=== PATIENT | male | born 1960 ===

== ENCOUNTER 2017-03-13 15:42 | Inpatient (IN) | payer MEDICAID, OTHER ==
[2017-03-13 15:53] VITALS: O2SAT 95
--- NOTE | 2017-03-13 15:54 | ED PDOC ---
Arrival/HPI - General Time Seen by Provider: 03/13/17 15:47 Historian: Patient - History of Present Illness Narrative History of Present Illness (Text): 03/13/17 15:51 56 y.o. male whose includes Hypertension and schizoaffective d/o who is being transferred from [facility] for psych admission. The patient was seen at [facility] and expressed that he was hearing voices telling him to kill himself. He was medically cleared. He needs to be admitted for psychiatry and was accepted at [facility] for psych admission. He denies any physical complaints. Family/Social History Family/Social History: Unknown Family HX Allergies/Home Meds Allergies/Adverse Reactions: Allergies Penicillins Allergy (Verified 03/13/17 15:48) RASH Review of Systems - Review of Systems Constitutional: absent: Fevers Respiratory: absent: SOB, Cough Cardiovascular: absent: Chest Pain Gastrointestinal: absent: Abdominal Pain, Nausea, Vomiting Genitourinary Male: absent: Dysuria Neurological: absent: Headache, Dizziness, Focal Weakness Psychiatric: Depression, Suicidal Ideation Physical Exam Temperature: Afebrile Blood Pressure: Normal Pulse: Regular Respiratory Rate: Normal Appearance: Positive for: Well-Appearing, Non-Toxic, Comfortable Pain Distress: None Mental Status: Positive for: Alert and Oriented X 3 - Systems Exam Head: Present: Atraumatic, Normocephalic Pupils: Present: PERRL Conjunctiva: Present: Normal Mouth: Present: Moist Mucous Membranes Pharnyx: Present: Normal. No: ERYTHEMA, EXUDATE Neck: Present: Normal Range of Motion Respiratory/Chest: Present: Clear to Auscultation, Good Air Exchange. No: Respiratory Distress, Accessory Muscle Use Cardiovascular: Present: Regular Rate and Rhythm, Normal S1, S2. No: Murmurs Abdomen: Present: Normal Bowel Sounds. No: Tenderness, Distention, Peritoneal Signs Back: Present: Normal Inspection Upper Extremity: Present: Normal Inspection. No: Cyanosis, Edema Lower Extremity: Present: Normal Inspection. No: Edema Neurological: Present: GCS=15, CN II-XII Intact, Speech Normal Skin: Present: Warm, Dry, Normal Color. No: Rashes Psychiatric: Present: Alert, Oriented x 3, Depressed Mood, Suicidal Ideation Medical Decision Making ED Course and Treatment: 03/13/17 15:55 Patient was medically cleared at [facility] and accepted for psych admission for SI - will be admitted to Dr. Alves. Disposition/Present on Arrival - Present on Arrival Any Indicators Present on Arrival: No - Disposition Have Diagnosis and Disposition been Completed?: Yes Diagnosis: Suicidal thoughts, Major depression Disposition: HOSPITALIZED Disposition Time: 15:45 Patient Plan: Admission Condition: FAIR
[2017-03-13] MEDS ORDERED: Magnesium Hydroxide Susp 30 ml UD PO PRN (17:53)
[2017-03-13] MEDS ORDERED: Alum-Mag Hydrox-Simethicone Susp (30 mL) PO PRN (17:53)
[2017-03-13 19:42] VITALS: BMI 28.5
[2017-03-14 07:34] LABS: CHOLESTEROL 176 mg/dL (130-200)
[2017-03-14 07:49] LABS: FREE T4 0.79 ng/dL (0.78-2.19)
[2017-03-14 08:48] LABS: THYROID STIMULATING HORMONE 1.05 mIU/mL (0.46-4.68)
--- NOTE | 2017-03-14 10:46 | CON ---
DATE: 03/14/2017 HISTORY OF PRESENT ILLNESS: I was called to the psych unit to evaluate him. He is a nice young man. He is a 56-year-old who has been very depressed. He also has some schizoaffective disorder and he tells me he has hypertension. He was transferred from [facility] for psych admission. He has been very depressed and he is hearing voices telling him to kill himself. He is very worried. He was medically cleared there and sent here for care and medical management. PAST MEDICAL HISTORY: Hypertension, schizoaffective disease and depression. PAST SURGICAL HISTORY: He denies any surgical history. ALLERGIES: PENICILLIN. MEDICATIONS: He is not taking any medicine at this time. FAMILY HISTORY: There is hypertension in the family. REVIEW OF SYSTEMS: No vision changes, no hearing changes, no sore throat, no headache, no dizziness, no chest pain, no shortness of breath or cough, no palpitations; no abdominal pain, no nausea, vomit ing, constipation or diarrhea. He is urinating okay. Skin is intact. He is depressed and suicidal thoughts from voices. PHYSICAL EXAMINATION: VITAL SIGNS: He has a 97.6 temp, 53 up to 58 pulse, 120/76 blood pressure, 20 respiratory rate, 95% O2 sat on room air. SOCIAL HISTORY: He is a smoker. He does not drink. We talked about quitting smoking today at [facility]. Since he is in hospital, he might try and quit. PHYSICAL EXAMINATION: HEENT: His head is atraumatic, normocephalic. Pupils are equal, reactive to light and accommodation . Extraocular muscles are intact. Throat is moist, no erythema. NECK: Supple, no JVD. HEART: Regular rate. Normal S1, S2. LUNGS: Decreased breath sounds bilaterally, but clear to auscultation. ABDOMEN: Soft, nontender, positive bowel sounds. No guarding, no rebound, no CVA tenderness. EXTREMITIES: Have no edema. NEUROLOGIC: GCS is 15. Cranial nerves II-XII grossly intact. Speech is normal. He can smile. He can stick out his tongue midline. He can close his eyes tight. He can put his arms over his head. He understands the colors red, green and yellow, and he can walk very well. Neurologically, he seems intact. SKIN: Warm and dry. PSYCHIATRIC: Alert and oriented x 3. He is depressed, although he did smile with me. LYMPHATICS: Thyroid midline. No palpable appreciative lymphadenopathy. LABORATORY DATA: That they did so far: He has 173 triglycerides, 176 cholesterol, LDL of 93, HDL 42 . TSH is 1.05. I ordered labs for tomorrow. VITAL SIGNS: Presently, his vital signs are good. Blood pressures are 127/84, 129/76 and 120/76. Alaina curran is not on any blood pressure medication right now. I will not add any either. MEDICATIONS: He on Ativan, Desyrel, Geodon, Maalox, milk of magnesia, Risperdal and Tylenol. Will keep an eye on that. Encourage him no more smoking. As per psychiatry for his depression and s chizoaffective disorder. Thank you for letting me be a part of his care. Oren Ortiz DO cc: [id number] TT: 03/14/2017 10:10:14 Confirmation # [id number] Dictation # [id number] kali
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
[2017-03-15 07:53] LABS: HEMATOCRIT 47.8 % (42.0-52.0); MEAN CELL VOLUME 92.8 fL (80.0-105.0); MEAN CORPUSCULAR HEMOGLOBIN 32.2 pg (25.0-35.0); MEAN CORPUSCULAR HGB CONC 34.7 g/dl (31.0-37.0); MEAN PLATELET VOLUME 9.2 fl (7.0-11.0); RED CELL DISTRIBUTION WIDTH 13.6 % (11.5-14.5); WHITE BLOOD COUNT 7.3 10^3/ul (4.5-11.0)
[2017-03-15 08:04] LABS: ALB/GLOB RATIO 1.5 (1.1-1.8); ALKALINE PHOSPHATASE 53 U/L (38-133); ALT/SGPT 79 U/L (7-56); AST/SGOT 48 U/L (15-59); BILIRUBIN,TOTAL 0.6 mg/dL (0.2-1.3); BLOOD UREA NITROGEN 18 mg/dL (7-21); CALCIUM 8.9 mg/dL (8.4-10.5); CARBON DIOXIDE 29 mmol/L (21-33); CHLORIDE 105 mmol/L (95-110); GFR AFRICAN-AMERICAN > 60; GLUCOSE,RANDOM 98 mg/dL (70-110); POTASSIUM 3.6 mmol/L (3.6-5.0); SODIUM 139 mmol/L (132-148); TOTAL PROTEIN 6.3 g/dL (5.8-8.3)
--- NOTE | 2017-03-15 08:54 | PN ---
DATE: 03/15/2017 I saw him on the psychiatric floor resting in bed. He slept well. He is in good spirits. He tells me he is starting to feel a little bit better. He is eating, participating, taking his medications a nd less depressed. MEDICATIONS: He is on Ativan, Desyrel, Geodon, simethicone, milk of magnesia, Risperdal and Tylenol. PHYSICAL EXAMINATION: VITAL SIGNS: 97.6 temp, 64 pulse, 109/69 blood pressure, 20 respiratory rate, 95% O2 sat on room air . HEENT: Head is atraumatic, normocephalic. HEART: Regular rate. LUNGS: Clear to auscultation. ABDOMEN: Soft. EXTREMITIES: No edema. LABORATORY DATA: He has a 7.3 white count, 16.6 hemoglobin, 217 platelets. Sodium 139, potassium 3. 6, BUN 18, creatinine 0.8, GFR is greater than 60, sugar is 98, calcium 8.9. Total bili is 0.6, AST is 48, ALT is 79, alkaline phosphatase 53, total protein 6.3, albumin 3.8, globulin 2.6. Triglycerid es are 173, cholesterol 176, LDL 93. TSH is 1.05. RPR is nonreactive. He is being seen by psychiatry. He is here for schizoaffective disorder, antisocial personality disorder, hypertension, depression. I will continue to follow. Oren Ortiz DO cc: [id number] TT: 03/15/2017 08:53:33 Confirmation # [id number] Dictation # [id number]
--- NOTE | 2017-03-15 17:11 | PCM.PYCHPN ---
Psychiatric Progress Note - Psychiatric Progress Note Patient seen today, length of contact: 30min Patient Chief Complaint: "I feel better a little" Problems Identified/Issues Discussed: Suicide/ homicide prevention, past psychiatric h/o, current psychiatric symptoms , medical problems, risk/benefits and alternatives of medications, medications compliance, coping strategies, substance abuse h/o, relapse prevention, importance of follow up with psychiatrist and therapist, discharge plan. Medical Problems: HTN Diagnostic Results: 03/15/17 07:30 03/15/17 07:30 Lab Results 03/15/17 07:30: Sodium 139, Potassium 3.6, Chloride 105, Carbon Dioxide 29, Anion Gap 9 L, BUN 18, Creatinine 0.8, Est GFR ( Amer) > 60, Est GFR (Non -Af Amer) > 60, Random Glucose 98, Calcium 8.9, Total Bilirubin 0.6, AST 48, ALT 79 H, Alkaline Phosphatase 53, Total Protein 6.3, Albumin 3.8, Globulin 2.6 , Albumin/Globulin Ratio 1.5 03/15/17 07:30: WBC 7.3, RBC 5.15, Hgb 16.6, Hct 47.8, MCV 92.8, MCH 32.2, MCHC 34.7, RDW 13.6, Plt Count 217, MPV 9.2 03/14/17 06:30: Triglycerides 173 H, Cholesterol 176, LDL Cholesterol Direct 93 , HDL Cholesterol 42 03/14/17 06:30: Free T4 0.79, TSH 3rd Generation 1.05 03/14/17 06:30: RPR Nonreactive Vital Signs Temp Pulse Resp BP Pulse Ox 03/15/17 16:31 64 142/93 H 03/15/17 09:08 97.8 F 58 L 16 127/77 03/14/17 16:00 64 109/69 03/14/17 07:18 97.6 F 53 L 20 120/76 03/13/17 17:51 98.1 F 55 L 20 129/76 03/13/17 15:52 98.3 F 58 L 18 127/84 95 DSM 5 Symptoms Update: shortly patient is 56 years old male self reported history of schizoaffective disorder, history of multiple incarcerations in the past, history of polysubstance abuse and dependence, history of noncompliance with the medications and follow-up appointments, was transferred from [facility] for evaluation of depressive symptoms, suicidal ideations, as well as psychotic symptoms. pt needs further evaluation and stabilization. patient was seen and examined today at the morning time at the treatment team meeting. discussed with staff, transfer documents were reviewed. Patient presented to have good personal hygiene, good ADLs. Patient was superficially corporative, pleasant, seems well related to this technical publications writer. pt reported that hallucinations are "little better", his mood is improving. pt started to go to the groups. pt is compliant with meds, denied side effects, none observed. AIMS 0, no EPS. Impression: DSM 5 Diagnosis: schizoaffective d/o r/o antisocial personality disorder Medication Change: Yes (risperdal resumed) Medical Record Reviewed: Yes Consults ordered or reviewed: medical consult appreciated Mental Status Examination - Cognitive Function Orientation: Person, Place, Situation, Time Memory: Intact Attention: Poor Concentration: Poor Association: WNL Fund of Knowledge: WNL - Mood Mood: Depressed - Affect Affect: Flat - Speech Speech: Appropriate - Formal Thought Process Formal Thought Process: Hallucinations ("I feel better, I didn't hear voices today") - Suicidal Ideation Suicidal Ideation: No - Homicidal Ideation Homicidal Ideation: No Goal/Treatment Plan - Goal/Treatment Plan Need for Continued Stay: Remain at risks for inpatient hospitalization, Severe depression anxiety, Discharge may exacerbated symptoms, Severe functional impairment Progress Toward Problem(s) and Goals/Treatment Plan: milieu, structure, supportive therapy risperdal 1 mg twice a day for psychosis for insomnia trazodone medical consult appreciated PRN meds for possible psychosis SW evaluation family involvement will monitor closely Estimated Date of D/C: 03/18/17 (will monitor closely)
--- NOTE | 2017-03-16 09:19 | PCM.PYCHPN ---
Psychiatric Progress Note - Psychiatric Progress Note Patient seen today, length of contact: 25 min Patient Chief Complaint: "okay" Problems Identified/Issues Discussed: I reviewed assessment and recent notes. Patient was interviewed at bedside. Patient is fairly groomed and generally cooperative with questioning. He is alert and oriented to date, year and circumstances. Patient reports that he is improving since admission, feels "okay" today. He isn't hopeless or suicidal. Affect is calm and neutral. Denies suicidal thoughts or thoughts to harm others. He is not hallucinating and delusions were not elicited. Patient denies any new discomfort or pain. He is tolerating his medications and slept well last night. Nursing notes indicate the patient has been quiet and cooperative. Appears brighter and has been less isolative. He has been visible on the unit, going to groups. There were no behavioral issues overnight Diagnostic Results: schizoaffective d/o r/o antisocial personality disorder Medication Change: No ( ) Medical Record Reviewed: Yes (notes, vitals, reports, labs) Mental Status Examination - Cognitive Function Orientation: Person, Place, Situation, Time Memory: Intact Attention: Poor Concentration: Poor Association: WNL Fund of Knowledge: WNL - Mood Mood: Depressed ("okay") - Affect Affect: Flat - Speech Speech: Appropriate - Formal Thought Process Formal Thought Process: Hallucinations ( denies today) - Suicidal Ideation Suicidal Ideation: No - Homicidal Ideation Homicidal Ideation: No Goal/Treatment Plan - Goal/Treatment Plan Need for Continued Stay: Remain at risks for inpatient hospitalization, Severe depression anxiety, Discharge may exacerbated symptoms, Severe functional impairment Progress Toward Problem(s) and Goals/Treatment Plan: * c/w current tx and plan * No new weekend labs * Vitals reviewed and noted below: Selected Entries 03/15/17 03/15/17 09:08 16:31 Temperature 97.8 F Pulse Rate 58 L 64 Respiratory 16 Rate Blood Pressure 127/77 142/93 H Estimated Date of D/C: 03/18/17 (will monitor closely)
--- NOTE | 2017-03-16 11:02 | PN ---
DATE: 03/16/2017 I saw the patient resting comfortably in bed on the psychiatric floor. He slept well. No acute dist ress this morning. He is feeling better with his depression. He is comfortable, he is eating, parti cipating in groups and taking his medications, which are Ativan, Desyrel, Geodon, Maalox, milk of mag nesia, Risperdal and Tylenol. PHYSICAL EXAMINATION: VITAL SIGNS: 97.4 temp, 65 pulse, 127/83 blood pressure, 20 respiratory rate. HEENT: Head is atraumatic, normocephalic. HEART: Regular rate. LUNGS: Clear to auscultation. ABDOMEN: Soft. EXTREMITIES: No edema. LABORATORY DATA: Good on the . He is here for depression, schizoaffective, hypertension, antisocial personality disorder, and hopefu lly he will continue to improve and he tells me he is being discharged on Saturday. We will follow. E ncouragement in the groups with diet and meds. Oren Ortiz DO cc: [id number] TT: 03/16/2017 11:01:30 Confirmation # [id number] Dictation # [id number] [email or web address]
--- NOTE | 2017-03-17 08:47 | PCM.PYCHPN ---
Psychiatric Progress Note - Psychiatric Progress Note Patient seen today, length of contact: 25 min Patient Chief Complaint: "okay" Problems Identified/Issues Discussed: I reviewed recent notes and interviewed patient at bedside. Patient is fairly groomed and generally cooperative with questioning. He is alert and oriented to date, year and circumstances. Patient reports that he continues to feel improved since admission. Mood is described as "okay". He isn't hopeless or suicidal. Affect is calm and neutral. Denies suicidal thoughts or thoughts to harm others. He is not hallucinating and delusions were not elicited. Patient denies any new discomfort or pain. He is tolerating his medications and slept well last night. Nursing notes indicate the patient has been quiet, groomed and cooperative. Appears a little brighter and has been less isolative. He has been visible on the unit, going to groups. There were no behavioral issues over the weekend. Diagnostic Results: schizoaffective d/o r/o antisocial personality disorder Medication Change: No ( ) Medical Record Reviewed: Yes (notes, vitals, reports, labs) Mental Status Examination - Cognitive Function Orientation: Person, Place, Situation, Time Memory: Intact Attention: Poor Concentration: Poor Association: WNL Fund of Knowledge: WNL - Mood Mood: Depressed ("okay") - Affect Affect: Flat - Speech Speech: Appropriate - Formal Thought Process Formal Thought Process: Hallucinations ( denied all weekend) - Suicidal Ideation Suicidal Ideation: No - Homicidal Ideation Homicidal Ideation: No Goal/Treatment Plan - Goal/Treatment Plan Need for Continued Stay: Remain at risks for inpatient hospitalization, Severe depression anxiety, Discharge may exacerbated symptoms, Severe functional impairment Progress Toward Problem(s) and Goals/Treatment Plan: * c/w current tx and plan * Appreciate f/u by Dr. Ortiz 03/16/17~no new recommendations * No new weekend labs * Vitals reviewed and noted below: Selected Entries 03/17/17 07:06 Temperature 97.8 F Pulse Rate 61 Respiratory 20 Rate Blood Pressure 121/81 Estimated Date of D/C: 03/18/17 (will monitor closely)
--- NOTE | 2017-03-17 12:10 | PN ---
DATE: 03/17/2017 I saw the patient resting comfortably in bed. He ate breakfast. He is smiling. He is improving. Alaina curran is taking his medication, participating in groups, in better spirits. He is on Ativan, Desyrel, Geodon, Maalox, milk of magnesia, Risperdal, Tylenol. PHYSICAL EXAMINATION: VITAL SIGNS: Temp 97.8, 61 pulse, 121/81 blood pressure, 20 respiratory rate. HEENT: His head is atraumatic, normocephalic. HEART: Regular rate. LUNGS: Clear to auscultation. ABDOMEN: Soft. EXTREMITIES: No edema. There is nothing new. He is improving, he is doing well. He is being seen by psychiatry. I believe the plan is for discharge tomorrow if everything goes well. He was here for severe depression, anxi ety, schizoaffective disorder, hypertension, antisocial disorder. Hopefully tomorrow he will be well enough to be discharged as per psychiatry. We will follow. Oren Ortiz DO cc: [id number] TT: 03/17/2017 12:09:43 Confirmation # [id number] Dictation # [id number] en
[2017-03-18 06:50] VITALS: BP 121/79; PULSE 59; RESP 19; TEMP 97.5
--- NOTE | 2017-03-18 08:53 | PN ---
DATE: 03/18/2017 I saw the patient resting in bed this morning on the psychiatric floor. He slept well. He had a goo d day yesterday. He is feeling well, improved. He tells me he is going home today. He is on Ativan, Desyrel, Geodon, Maalox, milk of magnesia, Risperdal and Tylenol. PHYSICAL EXAMINATION: VITAL SIGNS: Temp 97.5, 59 pulse, 121/79 blood pressure, 19 respiratory rate. HEENT: His head is atraumatic, normocephalic. HEART: Regular rate. LUNGS: Clear to auscultation. ABDOMEN: Soft. EXTREMITIES: No edema. He has got Ativan, Desyrel, Geodon, Maalox, milk of magnesia, Risperdal and Tylenol. LABORATORIES: Last were on the . He did very well. The plan for him, what he tells me, is to go home. I am hoping that happens. He is going to behave. He is going to follow up on the outpatient, take his medications, and hopefully he will do well. Oren Ortiz DO cc: [id number] TT: 03/18/2017 08:53:27 Confirmation # [id number] Dictation # [id number] en
--- NOTE | 2017-03-18 15:56 | PCM.PYCHDC ---
Mental Status Examination - Mental Status Examination Orientation: Person, Place, Situation, Time Memory: Intact Mood: Neutral Affect: Constricted (but reactive mood congruent) Speech: Appropriate Attention: WNL Concentration: WNL Association: WNL Fund of Knowledge: WNL Formal Thought Process: No Impairment (improved significantly) Description of patient's judgement and insight: Pt has improved insight into mental and medical illness, pt was compliant with medications and unit rules and regulations, pt was going to groups, was calm, cooperative, socially appropriate, no behavioral incidents, no agitation, no aggression. Psychotic Thoughts and Behaviors: Pt denied v/a/t hallucinations, denied paranoid ideations, pt does not appear to be psychotic, and thought process is goal directed. Suicidal Ideation: No Current Homicidal Ideation?: No Plan: pt adamantly denied thoughts of harming self or others denied intent or plan. Discharge Summary - Discharge Note Reason for Hospitalization: patient was admitted to the psychiatric inpatient unit for evaluation and stabilization of psychotic symptoms, depressive symptoms, possible suicidal and homicidal ideations. Psychiatric History (includes Medical, Family, Personal Hx): see HPI Laboratory Data: 03/15/17 07:30 03/15/17 07:30 Lab Results 03/15/17 07:30: Sodium 139, Potassium 3.6, Chloride 105, Carbon Dioxide 29, Anion Gap 9 L, BUN 18, Creatinine 0.8, Est GFR ( Amer) > 60, Est GFR (Non -Af Amer) > 60, Random Glucose 98, Calcium 8.9, Total Bilirubin 0.6, AST 48, ALT 79 H, Alkaline Phosphatase 53, Total Protein 6.3, Albumin 3.8, Globulin 2.6 , Albumin/Globulin Ratio 1.5 03/15/17 07:30: WBC 7.3, RBC 5.15, Hgb 16.6, Hct 47.8, MCV 92.8, MCH 32.2, MCHC 34.7, RDW 13.6, Plt Count 217, MPV 9.2 03/14/17 06:30: Triglycerides 173 H, Cholesterol 176, LDL Cholesterol Direct 93 , HDL Cholesterol 42 03/14/17 06:30: Free T4 0.79, TSH 3rd Generation 1.05 03/14/17 06:30: RPR Nonreactive Vital Signs Temp Pulse Resp BP Pulse Ox 03/18/17 06:49 97.5 F L 59 L 19 121/79 05/14/17 16:00 67 126/80 03/17/17 07:06 97.8 F 61 20 121/81 03/16/17 16:46 60 120/82 03/16/17 07:41 97.4 F L 65 20 127/83 03/15/17 16:31 64 142/93 H 03/15/17 09:08 97.8 F 58 L 16 127/77 03/14/17 16:00 64 109/69 03/14/17 07:18 97.6 F 53 L 20 120/76 03/13/17 17:51 98.1 F 55 L 20 129/76 03/13/17 15:52 98.3 F 58 L 18 127/84 95 Consultations:: List each consultation separately and include: 1. Reason for request. 2. Findings. 3. Follow-up Consultations: medical consult appreciated please see notes for more detailed information Summary of Hospital Course include:: 1. Description of specific treatment plan utilized for patients during their course of treatmen. 2. Summarize the time- course for resolution of acute symptoms and/or regressed behaviors. 3. Describe issues identified and worked on during hospitalization. 4. Describe medication utilized. 5. Describe medical problems identified and treated. 6. Reassessment of suicide risk Summary of Hospital Course: shortly patient is 56 years old male self reported history of schizoaffective disorder, history of multiple incarcerations in the past, history of polysubstance abuse and dependence, history of noncompliance with the medications and follow-up appointments, was transferred from [facility] for evaluation of depressive symptoms, suicidal ideations, as well as psychotic symptoms. pt needs further evaluation and stabilization. transfer documents were reviewed. Patient presented to have good personal hygiene, good ADLs. pt presented to be depressed, hopeless and helpless and worthless, patient reports that she was not able to sleep, had poor appetite, and family was really concerned about him. pt also has psychotic symptoms, command type hallucinations, telling him to hurt self and others. pt has manic episodes in the past, most recent was more than a year ago, patient reported that he was officially diagnosed with schizoaffective disorder. Lab Results 03/14/17 06:30: Triglycerides 173 H, Cholesterol 176, LDL Cholesterol Direct 93 , HDL Cholesterol 42 03/14/17 06:30: Free T4 0.79, TSH 3rd Generation 1.05 Vital Signs Temp Pulse Resp BP Pulse Ox 03/14/17 07:18 97.6 F 53 L 20 120/76 03/13/17 17:51 98.1 F 55 L 20 129/76 03/13/17 15:52 98.3 F 58 L 18 127/84 95 pt was stabilized on Risperdal 1mg po bid for psychosis and mood stabilization initially pt had difficulties to fall and stay asleep but became better, did not have any insomnia and trazodone was d/c patient tolerated medications well, no side effects observed or reported, aims 0 , no EPS. Patient was pleasant, corporative, socially appropriate, no agitation, no aggression. Over the course of this hospitalization pt was attending groups, pt also had medication management, had therapeutic milieu. Overall pt improved significantly, pt's affect became brighter, pt was less depressed, has realistic future oriented plans, pt also does not appear to be psychotic, or anxious, pt was socially appropriate, no behavioral issues, pts insight improved as well and soon pt deemed to be ready for discharge. At the time of the discharge pt denied been depressed, denied thoughts of harming self or others, denied psychotic symptoms, and pt does not appeared to be psychotic, denied been anxious, was considered to pose no threat to self or others, will be following up with outpatient psychiatrist, information about follow up appointment, time and address provided to the pt, it is patient responsibility to follow up with outpatient clinic, PMD as well as specialists ( see SW note for more detailed information). In case pt will need to obtain results of studies pending at discharge pt was provided with contact information of Psychiatric Inpatient unit [phone] as well as Medical Record Department [phone]. Counseling about substances abuse and cessation provided pt was provided with prescriptions for all of medications (please see medication reconciliation form) Pt was educated about safety plan in case of worsening of symptoms or in case of suicidal or homicidal ideation call 911 or go to the nearest ER, also was educated to take meds as prescribed and stay away from drugs, pt verbalized understanding. - Diagnosis (1) Schizoaffective disorder Status: Acute - Final Diagnosis (DSM 5) Condition upon Discharge: FAIR DSM 5: r/o antisocial personality Disposition: HOME/ ROUTINE Follow-up Treatment Plan: At the time of the discharge pt denied been depressed, denied thoughts of harming self or others, denied psychotic symptoms, and pt does not appeared to be psychotic, denied been anxious, was considered to pose no threat to self or others, will be following up with outpatient psychiatrist, information about follow up appointment, time and address provided to the pt, it is patient responsibility to follow up with outpatient clinic, PMD as well as specialists ( see SW note for more detailed information). In case pt will need to obtain results of studies pending at discharge pt was provided with contact information of Psychiatric Inpatient unit [phone] as well as Medical Record Department [phone]. Counseling about substances abuse and cessation provided pt was provided with prescriptions for all of medications (please see medication reconciliation form) Pt was educated about safety plan in case of worsening of symptoms or in case of suicidal or homicidal ideation call 911 or go to the nearest ER, also was educated to take meds as prescribed and stay away from drugs, pt verbalized understanding. Prescriptions/Medication Reconciliation: risperiDONE [RisperDAL Tab] 1 mg PO [facility] #14 tab - Smoking Cessation Smoking Cessation Medication prescribed: No Reason for not providing: pt denied smoking - Antipsychotic Medications Pt discharged on 2 or more routine antipsychotic medications: No
== END 2017-03-18 15:27 | disposition home or self-care (01) | DRG 430 ==
LOC: ED 15:42 → ERH 15:48 → PSYC 17:02
PROVIDERS: ADMIT Psychiatry & Neurology Psychiatry; ATTEND Psychiatry & Neurology Psychiatry
PROC: GZ3ZZZZ Medication Management (ICD-10-PCS; principal; 2017-03-13)
DX: F25.9 Schizoaffective disorder, unspecified (principal); F60.2 Antisocial personality disorder; Z91.14 Patient's other noncompliance with medication regimen; Z91.19 Patient's noncompliance with other medical treatment and regimen; I10 Essential (primary) hypertension; F17.210 Nicotine dependence, cigarettes, uncomplicated; G47.00 Insomnia, unspecified; Z91.5 Personal history of self-harm; Z82.49 Family history of ischemic heart disease and other diseases of the circulatory system